=== PATIENT | female | born 1985 | race Caucasian/White ===

== ENCOUNTER → 2020-02-14 | Outpatient (CLI) | payer OTHER | LOC: LAB 08:25 | PROVIDERS: ATTEND Nurse Practitioner | DX: Z20.828 Contact with and (suspected) exposure to other viral communicable diseases (principal); R50.9 Fever, unspecified; R06.02 Shortness of breath ==

== ENCOUNTER → 2020-05-12 | Outpatient (CLI) | payer OTHER | LOC: LAB 09:11 | PROVIDERS: ATTEND Nurse Practitioner | DX: Z20.828 Contact with and (suspected) exposure to other viral communicable diseases (principal) ==

== ENCOUNTER → 2020-05-27 | Outpatient (CLI) | payer OTHER | LOC: CAT 09:52 | PROVIDERS: ATTEND Nurse Practitioner | DX: R19.5 Other fecal abnormalities (principal); R31.9 Hematuria, unspecified; R80.9 Proteinuria, unspecified ==

== ENCOUNTER → 2020-06-06 | Outpatient (CLI) | payer OTHER | LOC: LAB 10:41 | PROVIDERS: ATTEND Nurse Practitioner | DX: Z20.828 Contact with and (suspected) exposure to other viral communicable diseases (principal) ==

== ENCOUNTER → 2020-06-06 | Outpatient (CLI) | payer OTHER ==
[2020-06-06 15:01] LABS: BASOPHILS 0.6 % (0.0-2.0); EOSINOPHILS 0.5 % (0.0-3.0); HEMATOCRIT 40.3 % (37.0-47.0); HEMOGLOBIN 13.5 gm/dL (12.0-15.0); LYMPHOCYTES 24.9 % (24.0-44.0); MCH 31.9 pg (26.0-34.0); MCHC 33.5 g/dL (28.0-37.0); MCV 95.4 fL (80.0-100.0); MONOCYTES 9.2 % (1.0-8.0); PLATELET COUNT 294 thou/uL (150-400); POLYS 64.8 % (36.0-66.0); RBC 4.22 mil/uL (4.20-5.00); RDW 12.8 % (10.5-14.5); WBC 7.7 thou/uL (4.0-11.0)
== END ==
LOC: LAB 14:24
PROVIDERS: ATTEND Nurse Practitioner
DX: R53.83 Other fatigue (principal); I10 Essential (primary) hypertension

== ENCOUNTER → 2020-08-25 | Outpatient (CLI) | payer OTHER | LOC: LAB 08:55 | PROVIDERS: ATTEND Nurse Practitioner | DX: U07.1 COVID-19 (principal) ==

== ENCOUNTER → 2020-09-19 | Outpatient (CLI) | payer OTHER ==
[2020-09-19 16:05] LABS: RDW 13.3 % (10.5-14.5)
[2020-09-19 16:06] LABS: HEMATOCRIT 38.6 % (37.0-47.0); HEMOGLOBIN 12.8 gm/dL (12.0-15.0); MCH 31.4 pg (26.0-34.0); MCHC 33.1 g/dL (28.0-37.0); RBC 4.07 mil/uL (4.20-5.00); WBC 10.5 thou/uL (4.0-11.0)
[2020-09-19 16:54] LABS: PLATELET COUNT 238 thou/uL (150-400)
[2020-09-19 16:57] LABS: ABSOLUTE NEUTROPHILS 6.5 thou/uL (1.4-8.2); ANISOCYTOSIS 1+; ATYPICAL LYMPHS 1 %
[2020-09-19 16:58] LABS: LARGE PLATELETS OCCASIONAL
[2020-09-20 03:06] LABS: IgA 87 mg/dL (87-352); IgG 1173 mg/dL (586-1602); IgM 32 mg/dL (26-217)
== END ==
LOC: LAB 15:18
PROVIDERS: ATTEND Allergy & Immunology Allergy
DX: J32.9 Chronic sinusitis, unspecified (principal)

== ENCOUNTER → 2020-10-07 | Outpatient (CLI) | payer OTHER | LOC: RAD 16:07 | PROVIDERS: ATTEND Nurse Practitioner | DX: R06.00 Dyspnea, unspecified (principal) ==